=== PATIENT | female | born 1965 | race Caucasian/White ===

== ENCOUNTER → 2020-09-10 | Outpatient (CLI) | payer BC ==
[~2020-09-10] MED LIST: PROHANCE 279.3MG/ML 15ML VIAL As Ordered ONE
--- NOTE | 2020-09-10 13:21 | REP ---
INDICATION: ABNORMAL FINDING ON MAMMO. COMPARISON: Report of prior mammography from June 25, 2020. Screening MRI recommended. TECHNIQUE: Three Emily MRI imaging was performed with a dedicated breast coil. Axial, coronal, and sagittal T1 and T2 weighted scans were obtained with and without fat saturation in the usual fashion. The study includes dynamically acquired post gadolinium-enhanced imaging with image subtraction. Maximum intensity projection and multi planar reformation imaging is included as well. This study is interpreted with the aid of Vouch, an FDA approved computer aided detection (CAD) software program, on a dedicated breast MRI workstation. The gadolinium enhancement dose is 11 mL of intravenous ProHance. FINDINGS: There is asymmetric pattern of moderate fibroglandular tissue. There is only minimal background parenchymal enhancement. There is no evidence of adenopathy or significant breast cystic disease on either side. High-resolution pre and post-contrast images show no suspicious morphologic abnormality on either side. Dynamically acquired sequential postcontrast images show no suspicious area of enhancement and washout in either breast. Subtraction images show no abnormality. IMPRESSION: BI-RADS category 1 negative bilateral breast MRI findings. Patients who has a lifetime breast cancer risk assessment is greater than 20% merit annual screening breast MRI study in addition to annual screening mammography. <Electronically signed by Marco Antonio Brower > 09/10/20 [id number]
== END ==
LOC: M RAD 07:48
DX: R92.8 Other abnormal and inconclusive findings on diagnostic imaging of breast (principal)
CPT/HCPCS: A9576; C8908

== ENCOUNTER → 2021-12-30 | Outpatient (CLI) | payer BC ==
[~2021-12-30] MED LIST changes: +B-122500 PO; +CALC-354 PO; +IRON65TA2 PO; +JOINCAP2 PO; +MM S100C PO; +MULT1TAB50 PO; +NOXI1TAB PO; +PANT40TA29; +PREM0.9T; -PROHANCE 279.3MG/ML 15ML VIAL As Ordered ONE; +VITA500C24 PO
[2021-12-30 17:09] LABS: ALT/SGPT 38 U/L (12-78); BILIRUBIN,TOTAL 0.2 MG/DL (0.2-1.0); BLOOD UREA NITROGEN 12 MG/DL (7-18); CARBON DIOXIDE LEVEL 34 MEQ/L (21-32); CHLORIDE LEVEL 103 MEQ/L (98-107); GLOMERULAR FILTRATION RATE > 60.0 (>51); GLUCOSE, FASTING 84 MG/DL (70-100); IRON (FE) 15 UG/DL (50-170); PERCENT SATURATION 2.7 % (13.2-45.0); POTASSIUM SERUM 4.7 MEQ/L (3.5-5.1); SODIUM LEVEL 140 MEQ/L (136-145); TOTAL IRON BINDING CAPACITY 565 UG/DL (250-450); TOTAL PROTEIN 6.6 GM/DL (6.4-8.2)
[2021-12-30 17:10] LABS: FERRITIN 4 NG/ML (8-252)
[2021-12-30 17:17] LABS: FOLATE 13.6 NG/ML; VITAMIN B12 LEVEL > 2000 PG/ML
[2021-12-30 17:25] LABS: BASO % 0.2 % (0.0-1.0); EOS # 0.2 10^3/uL (0.0-0.5); EOS % 2.4 % (0.0-3.0); HEMATOCRIT 36.5 % (36.0-47.0); HEMOGLOBIN 10.8 g/dl (12.0-15.5); LYMPH # 3.3 10^3/uL (1.5-5.0); LYMPH % 39.2 % (24.0-44.0); MEAN CORPUSCULAR HEMOGLOBIN 22.3 pg (27.0-33.0); MEAN CORPUSCULAR HGB CONC 29.6 g/dl (32.0-36.5); MEAN CORPUSCULAR VOLUME 75.3 fl (80.0-96.0); MONO # 0.8 10^3/uL (0.0-0.8); MONO % 9.7 % (2.0-8.0); NEUTROPHILS # 4.1 10^3/uL (1.5-8.5); NEUTROPHILS % 48.1 % (36.0-66.0); PLATELET COUNT, AUTOMATED 353 10^3/uL (150-450); RED BLOOD COUNT 4.85 10^6/uL (4.00-5.40); WHITE BLOOD COUNT 8.4 10^3/uL (4.0-10.0)
== END ==
LOC: M LAB 15:35
PROVIDERS: ATTEND Specialist
DX: D64.9 Anemia, unspecified (principal)